=== PATIENT | female | born 1985 | race Caucasian/White ===

== ENCOUNTER 2019-01-26 06:47 | Day surgery (SDC) | payer MEDICAID ==
[2019-01-26 07:29] LABS: ADD MAN DIFF? NO
[2019-01-26 07:32] LABS: WHITE BLOOD COUNT 7.8 10^3/ul (4.8-10.8)
[2019-01-26 07:32] LABS: BASOPHILS % 0.3 % (0.0-2.0); EOSINOPHILS # 0.2 10^3/ul (0.0-0.5); EOSINOPHILS % 1.9 % (0.0-7.0); HEMATOCRIT 40.4 % (37.0-47.0); HEMOGLOBIN 13.1 g/dl (12.0-16.0); LYMPHOCYTES # 2.5 10^3/ul (0.8-2.9); LYMPHOCYTES % 31.6 % (15.0-51.0); MEAN CORPUSCULAR HEMOGLOBIN 27.6 pg (29.0-33.0); MEAN CORPUSCULAR HGB CONC 32.4 g/dl (32.0-37.0); MEAN CORPUSCULAR VOLUME 85.1 fl (82.0-101.0); MEAN PLATELET VOLUME 10.6 fl (7.4-10.4); MONOCYTE # 0.5 10^3/ul (0.3-0.9); MONOCYTES % 5.9 % (0.0-11.0); NEUTROPHIL # 4.7 10^3/ul (1.6-7.5); NEUTROPHILS % 60.2 % (39.0-77.0); PLATELET COUNT 276 10^3/UL (140-415); RED BLOOD COUNT 4.75 10^6/ul (4.20-5.40); RED CELL DISTRIBUTION WIDTH 14.5 % (11.5-14.5)
[2019-01-26] MEDS ORDERED: SUCCINYLCHOLINE CHLORIDE 100 MG/5 ML SYG IV (08:13)
[2019-01-26] MEDS ORDERED: PROPOFOL 20 ML (08:13)
[2019-01-26] MEDS ORDERED: LIDOCAINE 1% (MDV) 20 ML INJ (08:13)
[2019-01-26] MEDS ORDERED: MIDAZOLAM 1 MG/ML 2 ML INJ (08:13)
[2019-01-26] MEDS ORDERED: ROCURONIUM 50 MG INJ (08:13)
[2019-01-26] MEDS ORDERED: ROPIVACAINE 0.5 % 30 ML VIAL (08:16)
[2019-01-26] MEDS ORDERED: OXYCODONE/ACETAMINOPHEN (5/325) TAB PO ×2 (08:30)
[2019-01-26] MEDS ORDERED: CEFAZOLIN 1 GM INJ (08:30)
[2019-01-26] MEDS ORDERED: HYDROmorphONE 1 MG/5 ML IV SYRINGE IV (08:30)
[2019-01-26] MEDS ORDERED: ONDANSETRON 4 MG INJ (08:34)
[2019-01-26] MEDS ORDERED: DEXAMETHASONE 4 MG/ML 5 ML INJ (08:34)
[2019-01-26] MEDS ORDERED: NEOSTIGMINE 10 MG INJ (09:02)
[2019-01-26] MEDS ORDERED: GLYCOPYRROLATE 0.4 MG INJ (09:02)
[2019-01-26] MEDS: HYDROmorphONE 1 MG/5 ML IV SYRINGE IV (09:42)
[2019-01-26] MEDS: ONDANSETRON 4 MG INJ IV (09:42)
== END 2019-01-26 11:30 | disposition home or self-care (01) ==
LOC: SDS 06:47
DX: Z30.2 Encounter for sterilization (principal)
CPT/HCPCS: 58670; 84702; 85025; 86850; 86900; 86901